=== PATIENT | female | born 1955 | race Caucasian/White ===

== ENCOUNTER → 2017-03-28 | Outpatient (CLI) | payer OTHER ==
[~2017-03-28] MED LIST: APRACLONIDINE 1% 0.1 ML OPH ONE; ASPI-535 PO; BENA20TA48 PO; CARV25TA79 PO; CLON1TAB3 PO; DIVA250T60 PO; METF1000 PO; OMEP20CA16 PO; PHENYLephrine 10% 5 ML OPH ONE; PROPARACAINE 0.5% 15 ML OPH ONE; RANI300T PO; SERT50TA PO; TROPICAMIDE 1% 3 ML OPH ONE
== END | disposition home or self-care (01) ==
LOC: RAD 09:47
PROVIDERS: ATTEND Ophthalmology
DX: H26.9 Unspecified cataract (principal)
CPT/HCPCS: 66821; Z7610

== ENCOUNTER 2017-11-08 09:28 | Day surgery (SDC) | END 2017-11-08 15:07 | disposition home or self-care (01) ==

== ENCOUNTER 2018-08-03 06:16 | Day surgery (SDC) | payer OTHER ==
[~2018-08-03] VITALS: Ht 152.4 cm; Wt 77.9 kg
[~2018-08-03 06:16] MED LIST changes: -APRACLONIDINE 1% 0.1 ML OPH ONE; +BENA20TA4 PO; -BENA20TA48 PO; +CLON1TAB13 PO; -CLON1TAB3 PO; +GLIMEPIRIDE PO; -METF1000 PO; +METF100010 PO; +PANTOPRAZOLE; -PHENYLephrine 10% 5 ML OPH ONE; -PROPARACAINE 0.5% 15 ML OPH ONE; +ROSUVASTATIN PO; -TROPICAMIDE 1% 3 ML OPH ONE; +ZETIA PO
[2018-08-03 06:59] VITALS: Ht 152.4 cm; Wt 77.9 kg
[2018-08-03 07:18] VITALS: BP 138/68; PULSE 77; RESP 18
--- NOTE | 2018-08-03 07:37 | PREAC ---
Date/Time of Note Date/Time of Note DATE: 08/03/18 TIME: 07:36 Anesthesia Eval and Record Evaluation Time Pre-Procedure Interview DATE: 08/03/18 TIME: 07:36 Age 63 Sex female NPO: 8 hrs Preoperative diagnosis dyspepsia, N/V Planned procedure EGD Past Medical History Past Medical History: Includes Cardio: HTN, Dyslipidemia Endo: Diabetes Psych: Bipolar Surgery & Anesthesia Issues No known issue Meds Anticoagulation: No Beta Pino within 24 hr: Yes Reported Medications [Rosuvastatin] No Conflict Check, PO 11/08/17 [Pantoprazole] No Conflict Check 11/08/17 [Zetia] No Conflict Check, PO 11/08/17 [Glimepiride] No Conflict Check, PO 11/08/17 Clonazepam* (Clonazepam*) 1 Mg Tablet, 1 MG PO DAILY 06/26/12 Benazepril Hcl* (Benazepril Hcl*) 20 Mg Tablet, 20 MG PO DAILY 06/26/12 Carvedilol* (Carvedilol*) 25 Mg Tablet, 40 MG PO DAILY 06/26/12 Metformin Hcl* (Metformin Hcl*) 1,000 Mg Tablet, 1000 MG PO BID 06/26/12 Sertraline Hcl* (Zoloft*) 50 Mg Tablet, 50 MG PO HS 06/26/12 Divalproex Sodium* (Depakote*) 250 Mg Tablet.dr, 250 MG PO TID 06/26/12 Ranitidine Hcl* (Ranitidine Hcl*) 300 Mg Tablet, 300 MG PO DAILY 06/26/12 Omeprazole* (Omeprazole*) 20 Mg Capsule.dr, 40 MG PO DAILY 06/26/12 Aspirin Ec (Aspir 81) 81 Mg Tablet.dr, 81 MG PO DAILY 06/26/12 Meds reviewed: Yes Allergies Coded Allergies: No Known Allergy (Unverified , 08/03/18) Allergies Reviewed: Yes Labs/Studies Labs Reviewed: Reviewed by anesthesiologist test: N/A Studies: ECG (n/a), CXR (n/a) Pre-procedure Exam Last vitals Vital Signs Date Temp Pulse Resp B/P (MAP) Pulse Ox O2 O2 Flow FiO2 Time Delivery Rate 08/03/18 96.6 77 18 138/68 97 Room Air 07:18 (91) Airway: Adequate mouth opening Mallampati: Mallampati I Teeth: Normal Lung: Normal Heart: Normal ASA Physical Status ASA physical status: 2 Emergency: None Planned Anesthetic General/MAC: MAC Planned Pain Management Parenteral pain med Pre-operative Attestations Prior to commencing anesthesia and surgery, the patient was re-evaluated, there was verification of: *The patient's identity *The results of appropriate recent lab work and preoperative vital signs *The above evaluation not changing prior to induction *Anesthetic plan, risk benefits, alternative and complications discussed with patient/family; questions answered; patient/family understands, accepts and wishes to proceed. HARLEY DOYLE MD Aug 03, 2018 07:37
[2018-08-03] MEDS ORDERED: PROPOFOL 20 ML ONE (07:38)
[2018-08-03] MEDS ORDERED: ONDANSETRON 4 MG INJ IV PRN (08:00)
--- NOTE | 2018-08-03 08:25 | PAC ---
Date/Time of Note Date/Time of Note DATE: 08/03/18 TIME: 08:25 Post-Anesthesia Notes Post-Anesthesia Note Last documented vital signs Vital Signs Date Temp Pulse Resp B/P (MAP) Pulse Ox O2 O2 Flow FiO2 Time Delivery Rate 08/03/18 96.6 77 18 138/68 97 Room Air 07:18 (91) Activity: WNL Respiratory function: WNL Cardiovascular function: WNL Mental status: Baseline Pain reasonably controlled: Yes Hydration appropriate: Yes Nausea/Vomiting absent: No HARLEY DOYLE MD Aug 03, 2018 08:25
[2018-08-03 08:33] VITALS: BP 136/78; PULSE 76; RESP 17
== END 2018-08-03 14:30 | disposition home or self-care (01) ==
LOC: GIL 06:16
PROVIDERS: ATTEND Internal Medicine Gastroenterology
DX: K29.70 Gastritis, unspecified, without bleeding (principal); I10 Essential (primary) hypertension; E78.5 Hyperlipidemia, unspecified; E11.9 Type 2 diabetes mellitus without complications
CPT/HCPCS: 43239; 82962; Z7610; 88305; 88312